=== PATIENT | female | born 1960 | race Caucasian/White ===

== ENCOUNTER → 2017-08-04 | Outpatient (CLI) | payer BC ==
[~2017-08-04] MED LIST: LEVO75TA73 PO
--- NOTE | 2017-08-04 15:18 | RADIOLOGY IMAGING REPORT ---
FACILITY: [facility] PATIENT NAME: VANNESSA SWIFT : [id number] MR: [id number] V: [id number] EXAM DATE: ORDERING PHYSICIAN: WADE ROWLAND TECHNOLOGIST: Khloe Vogel PROCEDURE:BILATERAL DIGITAL SCREENING MAMMOGRAM WITH CAD ASSISTED INTERPRETATION & 3D TOMOSYNTHESIS COMPARISON:Prior mammograms 08/16/16, 07/22/16, 07/10/15, 06/07/14. INDICATIONS:screening FINDINGS: Moderately heterogeneous fibroglandular tissue is seen throughout the breasts. The parenchymal pattern has remained stable allowing for difference in mammographic technique & patient positioning. There is no evidence of malignant appearing mass, malignant appearing calcifications or other secondary sign of malignancy in either breast. DIAGNOSTIC CATEGORY 1--NEGATIVE. RECOMMENDATIONS: ROUTINE MAMMOGRAM AND CLINICAL EVALUATION. IMPRESSION: BIRADS 1: Negative. No significant abnormality is seen. Dictated by: Keren Conley M.D. on 08/04/2017 at 13:39 Transcribed by: RENAN on 08/04/2017 at 13:50 Approved by: Keren Conley M.D. on 08/04/2017 at 15:18 [facility]
== END ==
LOC: MAMO 00:25
PROVIDERS: ATTEND Internal Medicine
DX: Z12.31 Encounter for screening mammogram for malignant neoplasm of breast (principal)
CPT/HCPCS: 77063; 77067